=== PATIENT | female | born 1960 | race Caucasian/White ===

== ENCOUNTER 2019-06-07 10:41 | Inpatient (IN) | payer BC, OTHER ==
[~2019-06-07] VITALS: Ht 170.2 cm; Wt 103.3 kg
--- NOTE | ~2019-06-07 | H ---
[facility] [place] [address] HISTORY AND PHYSICAL Name: SHREYAS KELLOGG Room #: 445-P ADM IN .R.#: [id number] Admission: 06/07/19 ������������������ Attend Phys: Kristi Enriquez MD Discharge: ������������������ Date of : 56 Report #: [id number] THIS REPORT FOR: //name// CC: Jamie Enriquez DATE OF SERVICE: 06/07/2019 PRIMARY CARE PHYSICIAN: Dr. Jamie Ramirez in [place], [place]. CHIEF COMPLAINT: Left-sided weakness for the past 3 days with slurred speech intermittently when the patient is very tired. HISTORY OF PRESENT ILLNESS: The patient is a very pleasant 58-year-old female with a known history of seizure disorder, cervical cancer, lower back surgery and low back pain and chronic pain syndrome. The patient informs me that she has been feeling fine and has been seizure free and has been taking Topamax. She was on Dilantin for a long time; however, by her neurologist, which she does not remember the name of, changed it to Topamax and she has had no seizures. She has been tolerating her medications fine. However, 3 days ago, the patient started noticing left lower extremity weakness and her son noticed that when the patient was tired she was having some slurred speech. Family advised the patient to come to the Emergency Room for further evaluation; however, the patient was adamant for not having any problems and finally she spoke to her primary care physician this morning and was advised to come to the hospital for further evaluation. The patient denies any syncopal episode, dizziness, lightheadedness, palpitations. She denies any associated fever, chills, night sweats, dysuria, hematuria, frequency or urgency of urination. Denies any cough with sputum production, sinus drainage for any headache. The patient also denies any problems with communication or comprehension at any time. ��������������������������������������������� ���������������������������������������� By: ��������������������������������������������� 2250 2302 Kristi Enriquez MD /nt
--- NOTE | ~2019-06-07 | H ---
[facility] [place] [address] HISTORY AND PHYSICAL Name: EDILBERTO CARBAJALSHREYAS K Room #: 445-P ADM IN M.R.#: [id number] Admission: 06/07/19 ������������������ Attend Phys: Kristi Enriquez MD Discharge: ������������������ Date of : 56 Report #: [id number] THIS REPORT FOR: //name// CC: Jamie Enriquez DATE OF SERVICE: 06/07/2019 PRIMARY CARE PHYSICIAN: Dr. Jake Ramirez. CHIEF COMPLAINT: Left-sided weakness for the last 3 days. HISTORY OF PRESENT ILLNESS: The patient is a very pleasant 58-year-old female with a known history of seizure disorder and has been having left-sided weakness and her son noted to have slurred speech when she was tired. The patient informs me that the left-sided weakness has been intermittent and she did not think much of it earlier; however, since it was not getting better, so she called her primary care physician this morning and the patient informs me that he advised her to come to the hospital for further evaluation. The patient denies any difficulty with comprehension or speech or any syncopal episode, headache, dizziness, lightheadedness associated with this. The patient denies any fever, shaking chills, night sweats. Review of systems also negative for any dysuria, hematuria, frequency or urgency of urination and she denies any nausea, vomiting, diarrhea, chest pain, abdominal pain; however, in the last 2-3 days, the patient has noted some soft stools and she has had up to 2-3 a day, but denies any diarrhea. PAST MEDICAL HISTORY: Significant for: 1. Seizure disorder. 2. Cervical cancer, treated. 3. Back pain. PAST SURGICAL HISTORY: The patient has had: 1. Tonsillectomy. 2. Deviated nasal septum and sinus surgery. 3. Back surgery. 4. Cervical cancer related surgery. FAMILY HISTORY: Positive for: 1. Breast cancer. 2. Diabetes mellitus type 2. ALLERGIES: No known drug allergies. She was told to have PENICILLIN allergy; however, since then she has taken it several times. CURRENT MEDICATIONS: [facility] [address] [place] [address] HISTORY AND PHYSICAL Name: SHREYAS KELLOGG Room #: 445-P [facility] IN [facility]#: [id number] Admission: 06/07/19 ������������������ Attend Phys: Kristi Enriquez MD Discharge: ������������������ Date of : 56 Report #: [id number] 1. Topamax. 2. Gabapentin. 3. Ocuvite. 4. Multivitamin. The patient uses [facility] pharmacy for her medications and she is unable to recall the name of her neurologist. PERSONAL AND SOCIAL HISTORY: The patient has half pack per day of tobacco use and denies any alcohol or recreational drugs. REVIEW OF SYSTEMS: Ten point review of system was done; please see HPI above. PHYSICAL EXAMINATION: VITAL SIGNS: When the patient initially presented, she was afebrile, heart rate 69, respirations 16, blood pressure 156/76 and pulse oximetry 96% on room air; however, at the time of examination, the patient had heart rate 69, respirations 13, blood pressure 163/71, pulse oximetry 99% on room air. GENERAL: Alert and oriented to time, place and person, very pleasant 58-year-old female with a BMI 35.7 and is in no acute distress, accompanied by her who is sitting at the bedside. HEENT: Normocephalic, atraumatic. Pupils equally round, reactive to light. Conjunctivae clear. Extraocular muscle movement intact. Sclerae nonicteric. Oropharynx clear. Uvula midline. Angle of mouth symmetrical. Mucous membranes moist. NECK: Supple, no JVD, no lymphadenopathy, no thyromegaly. HEART: S1, S2 regular. No murmur, no S3, no S4. LUNGS: Clear to auscultation bilaterally without any crackles or wheezes. ABDOMEN: Soft, nontender, nondistended, normal active bowel sounds, no organomegaly noted. EXTREMITIES: No edema both lower extremities. NEUROLOGICAL: Completely nonfocal. Cranial nerves 2 through 12 are intact. The patient has no difference in the weakness and no difference in strength in both lower extremities, hip and knee flexors and extensors and range of motion is within normal bilaterally symmetrical. Neurological exam is nonfocal. LABORATORY DATA: WBC 6.6, hemoglobin 13.6, hematocrit 42.2, platelets 171. Chemistries indicate sodium 143, potassium 4, chloride 108, bicarbonate 24, BUN 13, creatinine 1.0. TSH 1.881. Magnesium 2.1. C-reactive protein less than 2. The patient had a glucose of 139. Differential for the white cells was significant for segmented neutrophils 69% and platelet count normal, otherwise unremarkable. Serum alcohol normal. Drug screen negative. UA unremarkable. CT scan of the head was done, which indicates moderate cerebral atrophy and mild chronic deep white matter changes and no acute cerebral process noted and chest x-ray indicates cardiomegaly, but no acute process noted. [facility] [address] [place] [address] HISTORY AND PHYSICAL Name: SHREYAS KELLOGG Room #: 445-P [facility] IN M.R.#: [id number] Admission: 06/07/19 ������������������ Attend Phys: Kristi Enriquez MD Discharge: ������������������ Date of : 56 Report #: [id number] ASSESSMENT: 1. Transient ischemic attack with atypical presentation, waxing and waning of some of the symptoms. 2. Hypertension, untreated and undiagnosed. 3. Hyperlipidemia. 4. Seizure disorder with no recent seizure activity. 5. Memory issues. 6. Tobacco dependence. 7. The patient wishes to be full code and the DPOA is her who is sitting at the bedside. PLAN: The patient will have permissive hypertension. Neurology has been consulted. MRI of the brain along with MRA has been ordered and echocardiogram with bubble study has been requested. Discussed with the patient and her in detail the plan of care. The patient really did not want to come into the hospital or did not want to get admitted. She informs me; however, she would like to be discharged as soon as possible. Discussed with the patient about plan of care and MRI/MRA imaging ordered and neuro checks overnight and fall precaution is written. We will wait for Neurology consult. Resume her home medications. The patient requested her home medication if she can take her home supply; however, advised her that [facility] does not allow using home medications. PT, OT and Speech has been consulted. Bedside swallow evaluation has been done in the Emergency Room and the patient is cleared. We will go ahead and screen for diabetes and cholesterol and start statins, aspirin and plan of care was discussed in detail. Full code orders written and DVT prophylaxis has been started. ��������������������������������������������� ���������������������������������������� By: ��������������������������������������������� 2305 2327 MD lianna Mcclain
--- NOTE | ~2019-06-07 | HC ---
[facility] [address] [place] [address] CONSULTATION Name: EDILBERTO CARBAJALSHREYAS K Room #: 445-P ADM IN M.R.#: [id number] Admission: 06/07/19 ������������������ Attend Phys: Kristi Enriquez MD Discharge: ������������������ Date of : 56 Report #: [id number] THIS REPORT FOR: //name// CC: Jamie Enriquez DATE OF SERVICE: 06/08/2019 HISTORY OF PRESENT ILLNESS: The patient is a 58-year-old white female admitted with left-sided weakness x 3 days, slurred speech. She was diagnosed with a right pontine paramedian stroke thought that most likely be hypertensive. Neurology has been involved. She notes she is doing better. She is moving that left side better than she was previously. PAST MEDICAL HISTORY: Includes seizure disorder, cervical cancer, low back pain with surgery and chronic pain syndrome. MEDICATIONS: Please see the full medication listing. ALLERGIES: No known drug allergies. Although, apparently she was told that she had a PENICILLIN allergy, but since then she has taken it several times. SOCIAL HISTORY: She lives in a house with her . There are [address] and there is a stair way up to the middle level. Her is retired, volunteers at the [place]. The patient started using a cane last Friday. REVIEW OF SYSTEMS: No current complaints of chest pain, shortness of breath or abdominal discomfort. HABITS: Half pack per day, tobacco use. Denies alcohol or recreational drugs. REVIEW OF SYSTEMS: No current complaints of chest pain, shortness of breath or abdominal discomfort. PHYSICAL EXAMINATION: GENERAL: A 58-year-old white female in no obvious distress. She is alert, pleasant. HEENT: Appeared to be benign. VITAL SIGNS: Last recorded temperature 36.9, pulse 66, respirations 17, blood pressure 150/78. NEUROLOGIC: She is alert. HEENT: Appeared to be benign. Facies were symmetric. She does have some left upper extremity coordination deficits with fine finger dexterity and [id number]. Strength appears to be at least a grade 4-/5. Left lower extremity appeared to have good strength, probably at least a grade 4-/5. reasonably well with basic coordination. Sensation was intact to light touch [address] [address] CONSULTATION Name: SHREYAS KELLOGG Room #: 445-P [facility] IN [facility]#: [id number] Admission: 06/07/19 ������������������ Attend Phys: Kristi Enriquez MD Discharge: ������������������ Date of : 56 Report #: [id number] with simultaneous stimulation both upper and lower extremities and her face. DTRs were trace to 1. ASSESSMENT: A 66-year-old white female with the following problem list: 1. Right pontine paramedian stroke, most likely hypertensive in etiology. 2. Left-sided weakness with some coordination difficulties. 3. Slurred speech that appears to be improved/resolved. 4. History of chronic pain syndrome. 5. Seizure disorder. 6. History of cervical cancer. PLAN: Therapies are evaluating for her overall function. She notes that she is improving. We will need to see how she does in therapies and proceed from there. ��������������������������������������������� ���������������������������������������� By: ��������������������������������������������� 0947 1312 Rodger Martin MD /PMT
[~2019-06-07 10:41] MED LIST: DILANTIN100 MG; DOXYCYCLINE 10100 MG PO; HYDROCODON-ACE1 EAC7 PO; NORCO 5-325 TA1 EACH PO
[2019-06-07] MEDS ORDERED: TOPAMAX 25 MG T25 M1 PO (10:50)
[2019-06-07] MEDS ORDERED: NEURONTIN600 MG PO (10:51)
[2019-06-07 11:03] LABS: ABSOLUTE NEUTROPHILS 4.6 thou/uL (1.4-8.2); EOSINOPHILS 1.4 % (0.0-3.0); HEMATOCRIT 42.2 % (37.0-47.0); HEMOGLOBIN 13.6 gm/dL (12.0-15.0); LYMPHOCYTES 22.2 % (24.0-44.0); MCH 26.8 pg (26.0-34.0); MCHC 32.3 g/dL (28.0-37.0); MCV 83.1 fL (80.0-100.0); MONOCYTES 6.3 % (1.0-8.0); POLYS 69.1 % (36.0-66.0); RBC 5.08 mil/uL (4.20-5.00); RDW 14.3 % (10.5-14.5); WBC 6.6 thou/uL (4.0-11.0)
[2019-06-07 11:16] LABS: ANION GAP 11 mmol/L (7-16); BUN 13 mg/dL (7-18); CALCIUM 9.8 mg/dL (8.5-10.1); CHLORIDE 108 mmol/L (98-107); CO2 24 mmol/L (21-32); GLUCOSE 139 mg/dL (74-106); SODIUM 143 mmol/L (136-145)
[2019-06-07 11:27] LABS: SGOT 26 U/L (15-37); SGPT 34 U/L (30-65); TOTAL BILIRUBIN 0.3 mg/dL (<0.1-1.0); TOTAL PROTEIN 8.1 g/dL (6.4-8.2); TROPONIN-I <0.06 ng/mL (<0.06)
[2019-06-07 11:31] LABS: PLATELET COUNT 171 thou/uL (150-400); PLATELET ESTIMATE NORMAL
[2019-06-07 11:42] LABS: MAGNESIUM 2.1 mg/dL (1.8-2.4)
[2019-06-07 11:49] LABS: APTT 28.5 Seconds (24.5-32.8); PROTIME 10.2 Seconds (9.3-11.4)
[2019-06-07 12:48] LABS: URINE BILIRUBIN NEGATIVE (Negative); URINE BLOOD NEGATIVE (Negative); URINE CLARITY CLOUDY; URINE COLOR YELLOW; URINE GLUCOSE-RANDOM* NEGATIVE (Negative); URINE KETONES NEGATIVE (Negative); URINE LEUKOCYTES-REFLEX 2+ (Negative); URINE NITRITE-REFLEX NEGATIVE (Negative); URINE PROTEIN (DIPSTICK) NEGATIVE (Negative); URINE SPECIFIC GRAVITY <= 1.005 (1.005-1.035); URINE UROBILINOGEN 0.2 E.U./dl (0.2-1.0)
[2019-06-07 12:56] LABS: SQUAMOUS 4-10 Moderate /LPF (0-3)
[2019-06-07 12:57] LABS: AMORPHOUS URATES Many /LPF (None Seen); BACTERIA-REFLEX 1-9 Few /HPF (None Seen); CASTS None Seen /LPF (None Seen); URINE RBC None Seen /HPF (0-2); URINE WBC-REFLEX 0-5 Rare /HPF (0-5)
[2019-06-07 13:06] LABS: AMP/METHAMP Negative (Negative); BARBITURATES Negative (Negative); BENZODIAZEPINES Negative (Negative); COCAINE Negative (Negative); METHADONE Negative (Negative); OPIATES Negative (Negative); PCP Negative (Negative)
--- NOTE | 2019-06-07 16:03 | 2DMMODE ---
[facility] [place] [address] 2 D/M-MODE ECHOCARDIOGRAM Name: SHREYAS KELLOGG Room #: 170-10 ADM IN .R.#: [id number] ������������� Admission: 06/07/19 ������������� Attend Phys: Kristi Enriquez, Discharge: ��� ������������� ��� Date of : 56 Date of Service: 06/07/19 1602 �� Report #: [id number] �������� ��������������������������������������������[id number] THIS REPORT FOR: //name// APPROVED REPORT Study performed: 06/07/2019 15:11:33 EXAM: Comprehensive 2D, Doppler, and color-flow Echocardiogram Patient Location: ER Room #: 10 Status: routine BSA: 2.15 HR: 64 bpm BP: 163/71 mmHg Other Information Study Quality: Adequate Indications CVA/TIA left sided weakness 2D Dimensions RVDd: 38.82 mm IVSd: 10.49 (7-11mm) LVOT Diam: 21.60 (18-24mm) LVDd: 56.56 mm PWd: 11.07 (7-11mm) Ascending Ao: 34.41 (22-36mm) LVDs: 43.99 (25-40mm) Aortic Root: 32.83 mm IVC: 20.00 mm Volumes Left Atrial Volume (Systole) Single Plane 4CH: 56.06 mL Single Plane 2CH: 50.20 mL LA ESV Index: 26.00 mL/m2 Aortic Valve AoV Peak Vipul.: 1.40 m/s AO Peak Gr.: 7.87 mmHg LVOT Max P.80 mmHg LVOT Max V: 0.97 m/s POLLY Vmax: 2.54 cm2 Mitral Valve E/A Ratio: 0.6 MV Decel. Time: 160.38 ms MV E Max Vipul.: 0.64 m/s [facility] [address] [address] 2 D/M-MODE ECHOCARDIOGRAM Name: SHREYAS KELLOGG Room #: 170-[facility] IN [facility]#: [id number] ������������� Admission: 06/07/19 ������������� Attend Phys: Kristi Enriquez, Discharge: ��� ������������� ��� Date of : 56 Date of Service: 06/07/19 1602 �� Report #: [id number] �������� ��������������������������������������������[id number] MV A Vipul.: 0.99 m/s MV PHT: 46.51 ms IVRT: 119.95 ms Pulmonary Valve PV Peak Vipul.: 0.97 m/s PV Peak Gr.: 3.74 mmHg Pulmonary Vein P Vein S: 0.73 m/s P Vein A: 0.20 m/s P Vein D: 0.59 m/s P Vein A Dur.: 87.7 msec P Vein S/D Ratio: 1.24 Tricuspid Valve RAP Estimate: 5.00 mmHg Left Ventricle Left ventricle is mildly dilated. There is normal left ventricular wall thickness. Left ventricular systolic function is mildly decreased. LVEF is 40-45%.global Mild diastolic dysfunction is present (impaired relaxation pattern). Right Ventricle Right ventricle is at the upper limits of normal. The right ventricular systolic function is normal. Atria The left atrium size is normal. No shunting by contrast bubble injection. Right atrium is at the upper limits of normal. Aortic Valve The aortic valve is normal in structure. Trace aortic regurgitation. There is no aortic valvular stenosis. Mitral Valve The mitral valve is normal in structure. Trace to mild mitral regurgitation. No evidence of mitral valve stenosis. Tricuspid Valve The tricuspid valve is normal in structure. There is no tricuspid valve regurgitation noted. Unable to assess PA pressure. Pulmonic Valve The pulmonary valve is normal in structure. There is no pulmonic valvular regurgitation. [place] [address] 2 D/M-MODE ECHOCARDIOGRAM Name: SHREYAS KELLOGG Room #: 170-10 [facility] IN .R.#: [id number] ������������� Admission: 06/07/19 ������������� Attend Phys: Kristi Enriquez, Discharge: ��� ������������� ��� Date of : 56 Date of Service: 06/07/19 1602 �� Report #: [id number] �������� ��������������������������������������������[id number] The aortic root is normal in size. IVC is normal in size and collapses >50% with inspiration. Pericardium There is no pericardial effusion. <Conclusion> Left ventricle is mildly dilated. Left ventricular systolic function is mildly decreased. LVEF is 40-45%.global Mild diastolic dysfunction is present (impaired relaxation pattern). Right ventricle is at the upper limits of normal. The left atrium size is normal. No shunting by contrast bubble injection. The aortic valve is normal in structure. Trace aortic regurgitation. Trace to mild mitral regurgitation. There is no tricuspid valve regurgitation noted. Unable to assess PA pressure. The aortic root is normal in size. There is no pericardial effusion. ��������������������������������������������� <ELECTRONICALLY SIGNED> ���������������������������������������� By: Tripp Pedersen MD, [facility] ��������������������������������������������� 06/07/19 1602 160 160 Tripp Pedersen MD, FACC /INF
[2019-06-07 17:52] VITALS: BP 144/92
[2019-06-07 18:10] VITALS: BP 154/74
[2019-06-07 18:30] VITALS: BP 114/74
[2019-06-07] MEDS ORDERED: TOPAMAX 100 MG100 MG PO (21:15)
[2019-06-07] MEDS ORDERED: OCUVITE TABLET1 EAC1 PO (21:15)
[2019-06-07] MEDS ORDERED: UNICOMPLEX M TA1 TA1 PO (21:16)
[2019-06-08] VITALS (9 sets, daily range): BP systolic 137–158; BP diastolic 61–92
[2019-06-08 01:10] LABS: GLYCOHEMOGLOBIN (HGB A1C) 6.2 % (4.8-5.6)
--- NOTE | 2019-06-08 05:34 | NUR ---
Arrived from ER around 1839 accompanied by . No change in neuro assesment. Pt. stated left sided weakness and slurring of speech has completely resolved. No neuro deficit noted this shift. Med rec verified with pt. Ambulated with assist to bathroom using her own cane. She stated she only started using cane last Friday when she had the intermittent left sided weakness otherwise she moves around with steady gait.Pt. didn't sleep much last night. Will continue to monitor.
[2019-06-08 06:27] LABS: CHOLESTEROL 187 mg/dL (<200); HDL CHOLESTEROL 37 mg/dL (>40); LDL CHOLESTEROL 120 mg/dL (<100); TC:HDL 5.1 Ratio (Not establshd); TRIGLYCERIDE 153 mg/dL (<150); VLDL 31 mg/dL (<40)
[2019-06-08 09:54] LABS: FOLIC ACID 37.2 ng/mL (8.6-58.9)
--- NOTE | 2019-06-08 11:04 | NUR ---
DISCUSSED SMOKEING CESSATION WITH PATIENT. PT STATED SHE UNDERSTOOD.
--- NOTE | 2019-06-08 12:35 | EKG ---
[address] [place] [address] ELECTROCARDIOGRAM REPORT Name: SHREYAS KELLOGG Room #: 445-P ADM IN .R.#: [id number] ������������������ Admission: 06/07/19 ������������������ Attend Phys: Kristi Enriquez MD Discharge: ������������������ Date of : 56 Report #: [id number] ����������������������������������������������������������������� [id number] THIS REPORT FOR: //name// [facility] ED Test Date: 2019-06-07 Test Time: 11:35:23 Pat Name: SHREYAS CASANOVA CARBAJAL Department: Room: [facility] Gender: F Digital Media Representative: toi : 1960 Requested By: Raymundo Donovan Order Number: [id number] MD: Chito Carroll Measurements Intervals [place] Rate: 63 P: 33 MD: 187 QRS: -20 QRSD: 106 T: -36 QT: 425 QTc: 436 Interpretive Statements Sinus rhythm Atrial premature complexes Nonspecific T abnormalities, diffuse leads No previous ECG available for comparison Electronically Signed On 06-08-2019 12:35:45 CDT by Chito Carroll [email or web address] ��������������������������������������������� <ELECTRONICALLY SIGNED> ���������������������������������������� By: Chito Carroll MD, [facility] ��������������������������������������������� 06/08/19 1235 1135 1135 Chito Carroll MD, FAC /EPI
--- NOTE | 2019-06-08 14:41 | NUR ---
ASSESSMENT: CM REVIEWED CHART AND MET WITH PATIENT AND HER SON AT THE BEDSIDE. PT IS ALERT AND ORIENTED X4. PT WAS ADMITTED WITH POSSIBLE CVA. PT REPORTS LIVING IN A HOUSE WITH HER . PT REPORTS THEY NORMALLY ENTER THROUGH THE GARAGE AND HAVE A FULL FLIGHT OF STEPS WITH HANDRAILS TO THE MAIN LEVEL WHERE HER BEDROOM IS. PT REPORTS THEY HAVE ANOTHER LEVEL BUT HAVE NO NEED TO GO UP THERE. PT REPORTS SHE HAS A CANE AT HOME BUT DOES NOT ALWAYS USE IT. PT REPORTS HAVING A WALKER THAT SHE DOES NOT USE. PT REPORTS THEY HAVE A SHOWER CHAIR AND PT IS INDEPENDENT WITH ADLS. PT REPORTS SHE HAS NOT HAD HH IN THE PAST NOR BEEN TO A REHAB/SNF. CM DISCUSSED ROLE. PT DID WELL WITH PHYSICAL THERAPY. PT CAN RETURN HOME WITH OUTPATIENT THERAPY OR JUST HOME WITH NO NEEDS. PT REPORTS SHE JUST WISHES TO RETURN HOME WITH NO NEEDS. CM WILL CONTINUE TO FOLLOW TO ASSIST NEEDED.
--- NOTE | 2019-06-08 17:12 | NUR ---
ASSUMED CARE OF PATIENT AT 0700. PATIENT RECIEVED NEURO/NIHSS THROUGHOUT THE DAY WITH NO CHANGE. PATIENT HAD NO DEFICIENCIES IN NEURO ASSESSMENTS.
[2019-06-09 00:32] VITALS: BP 146/83
--- NOTE | 2019-06-09 03:52 | NUR ---
ASSUMED CARE AROUND 1900. AXOX4. NIH Q4. HAS BEEN SCORING 0. C/O MULTIPLE DIARRHEAS AT THE BEGINNING OF THE SHIFT. CALLED [facility] AND OBTAINED AN ORDER TO PUT PT ON ISO FOR POSSIBLE C,DIFF AND COLLECT STOOL SAMPLE. PT VERBALIZES UNDERSTANING. NO S/S ACUTE DISTRESS NOTED OR REPORTED AT THIS TIME. WILL CONT TO MONITOR FOR ANY CHANGES IN CONDITION.
[2019-06-09 04:59] VITALS: BP 144/82
[2019-06-09 05:52] LABS: ABSOLUTE NEUTROPHILS 2.9 thou/uL (1.4-8.2); BASOPHILS 0.8 % (0.0-2.0); EOSINOPHILS 2.8 % (0.0-3.0); HEMATOCRIT 38.9 % (37.0-47.0); HEMOGLOBIN 12.3 gm/dL (12.0-15.0); LYMPHOCYTES 33.2 % (24.0-44.0); MCH 26.4 pg (26.0-34.0); MCHC 31.6 g/dL (28.0-37.0); MCV 83.7 fL (80.0-100.0); MONOCYTES 10.3 % (1.0-8.0); PLATELET COUNT 147 thou/uL (150-400); POLYS 52.9 % (36.0-66.0); RBC 4.65 mil/uL (4.20-5.00); RDW 14.3 % (10.5-14.5); WBC 5.5 thou/uL (4.0-11.0)
[2019-06-09 06:10] LABS: ALBUMIN 3.5 g/dL (3.4-5.0); CREATININE 0.9 mg/dL (0.6-1.0); PHOSPHORUS 3.8 mg/dL (2.5-4.9); POTASSIUM 3.8 mmol/L (3.5-5.1); TOTAL BILIRUBIN 0.3 mg/dL (<0.1-1.0); TOTAL PROTEIN 7.2 g/dL (6.4-8.2)
[2019-06-09 07:35] VITALS: BP 127/83
[2019-06-09 08:00] VITALS: BP 127/83
[2019-06-09 11:29] VITALS: BP 101/50
[2019-06-09] MEDS ORDERED: LIPITOR40 MG PO (13:33)
[2019-06-09] MEDS ORDERED: BENAZEPRIL HCL5 MG PO (13:34)
[2019-06-09] MEDS ORDERED: ASPIRIN EC81 M1 PO (13:35)
--- NOTE | 2019-06-09 13:44 | NUR ---
ON-GOING ASSESSMENT: PT HAS ORDERS TO DISCHARGE HOME WITH NO NEEDS.
[2019-06-09 14:19] VITALS: BP 101/50
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
== END 2019-06-09 15:31 | disposition home or self-care (01) | DRG 65 ==
LOC: ER 10:41 → EROBS 13:42 → 4S 18:10 → ENTRNSPT 06-09 15:17 → 4S 06-09 15:31
PROVIDERS: Emergency Medicine; Psychiatry & Neurology Neurology; ADMIT Internal Medicine
DX: I63.9 Cerebral infarction, unspecified (principal); I42.9 Cardiomyopathy, unspecified; F17.200 Nicotine dependence, unspecified, uncomplicated; E78.5 Hyperlipidemia, unspecified; G40.909 Epilepsy, unspecified, not intractable, without status epilepticus; I10 Essential (primary) hypertension; G47.33 Obstructive sleep apnea (adult) (pediatric); E11.9 Type 2 diabetes mellitus without complications; E66.9 Obesity, unspecified; Z68.35 Body mass index [BMI] 35.0-35.9, adult; Z79.1 Long term (current) use of non-steroidal anti-inflammatories (NSAID); Z79.899 Other long term (current) drug therapy; Z71.6 Tobacco abuse counseling; Z90.710 Acquired absence of both cervix and uterus; Z82.49 Family history of ischemic heart disease and other diseases of the circulatory system; Z85.41 Personal history of malignant neoplasm of cervix uteri
CPT/HCPCS: 10100

== ENCOUNTER → 2019-07-07 | Outpatient (CLI) | payer BC, OTHER ==
[~2019-07-07] MED LIST changes: +ASPIRIN EC81 M1 PO; +BENAZEPRIL HCL5 MG PO; +LIPITOR40 MG PO; +NEURONTIN600 MG PO; +OCUVITE TABLET1 EAC1 PO; +TOPAMAX 100 MG100 MG PO; +TOPAMAX 25 MG T25 M1 PO; +UNICOMPLEX M TA1 TA1 PO
== END ==
LOC: NUC 07:53
DX: I42.8 Other cardiomyopathies (principal); E78.5 Hyperlipidemia, unspecified; Z87.891 Personal history of nicotine dependence; Z79.899 Other long term (current) drug therapy; Z79.82 Long term (current) use of aspirin

== ENCOUNTER 2021-08-18 15:00 | Emergency (ER) | payer BC ==
[~2021-08-18] VITALS: Ht 167.6 cm; Wt 104.3 kg
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
[2021-08-18 15:26] LABS: ABSOLUTE NEUTROPHILS 3.2 thou/uL (1.4-8.2); BASOPHILS 1.2 % (0.0-2.0); HEMATOCRIT 38.2 % (37.0-47.0); HEMOGLOBIN 12.2 gm/dL (12.0-15.0); LYMPHOCYTES 30.3 % (24.0-44.0); MCH 26.6 pg (26.0-34.0); MCHC 31.9 g/dL (28.0-37.0); MCV 83.5 fL (80.0-100.0); MONOCYTES 7.9 % (1.0-8.0); PLATELET COUNT 152 thou/uL (150-400); POLYS 58.6 % (36.0-66.0); RBC 4.58 mil/uL (4.20-5.00); RDW 13.7 % (10.5-14.5); WBC 5.4 thou/uL (4.0-11.0)
[2021-08-18 15:31] VITALS: BP 195/83
[2021-08-18 15:41] LABS: CALCIUM 9.4 mg/dL (8.5-10.1); CREATININE 1.1 mg/dL (0.6-1.0); POTASSIUM 3.7 mmol/L (3.5-5.1)
== END 2021-08-18 16:30 | disposition home or self-care (01) ==
LOC: ER 15:00
PROVIDERS: Nurse Practitioner
DX: R56.9 Unspecified convulsions (principal); F17.210 Nicotine dependence, cigarettes, uncomplicated; Z85.41 Personal history of malignant neoplasm of cervix uteri; Z98.890 Other specified postprocedural states; Z90.710 Acquired absence of both cervix and uterus; G62.9 Polyneuropathy, unspecified; Z79.82 Long term (current) use of aspirin; Z79.899 Other long term (current) drug therapy; Z79.891 Long term (current) use of opiate analgesic